=== PATIENT | female | born 1965 | race Caucasian/White ===

== ENCOUNTER 2017-08-06 09:44 | Day surgery (SDC) | payer BC ==
[~2017-08-06] VITALS: Ht 175.3 cm; Wt 108.0 kg
[2017-08-06] VITALS (16 sets, daily range): BP systolic 99–146; BP diastolic 57–74; PULSE 52–78; RESP 16–18; Ht 175.3 cm; Wt 108.0 kg
[~2017-08-06 09:44] MED LIST: ATROPINE 1 MG/10 ML SYRINGE IV PRN; CEFAZOLIN 1 GM INJ ONE; DIPHENHYDRAMINE 50 MG INJ IV PRN; EPHEDrine SULFATE 50 MG/5 ML SYG IV PRN; FENTAnyl 50 MCG/ML VIAL IV PRN; HYDR-3498 PO; HYDROmorphONE (0.2 MG/ML) 10ML SYG IV PRN; IBUP800T25 PO; LABETALOL HCL 20MG INJ IV PRN; LOSA100T7 PO; MEPERIDINE 25 MG INJ IV PRN; MIDAZOLAM 1 MG/ML 2 ML INJ IV PRN; ONDANSETRON 4 MG INJ IV PRN; ONDANSETRON 4 MG INJ ONE; OXYCODONE/ACETAMINOPHEN (5/325) TAB PO PRN; PANT40TA4 PO; hydrALAzine 20 MG INJ IV PRN; morphine (1 MG/ML) 10ML SYRINGE IV PRN
[2017-08-06] MEDS ORDERED: ASPI-664 PO (10:31)
[2017-08-06] MEDS ORDERED: LOSA1TAB20 PO (10:32)
[2017-08-06] MEDS ORDERED: BUPIVACAINE 0.5% (SDV) 30 ML INJ ONE (11:26)
[2017-08-06] MEDS ORDERED: NEOMYC/POLYMYX/BACIT 30 GM OINT ONE (11:26)
[2017-08-06] MEDS ORDERED: ROPIVACAINE 0.5 % 30 ML VIAL ONE (11:26)
[2017-08-06] MEDS ORDERED: GLYCOPYRROLATE 0.4 MG INJ ONE (11:37)
[2017-08-06] MEDS ORDERED: PROPOFOL 20 ML ONE (11:37)
[2017-08-06] MEDS ORDERED: NEOSTIGMINE 3 MG/3 ML SYRINGE ONE (11:37)
[2017-08-06] MEDS ORDERED: MIDAZOLAM 1 MG/ML 2 ML INJ ONE (11:37)
[2017-08-06] MEDS ORDERED: LIDOCAINE 2% (SDV) 5 ML INJ ONE (11:37)
[2017-08-06] MEDS ORDERED: ROCURONIUM 50 MG INJ ONE (11:37)
[2017-08-06] MEDS ORDERED: FENTAnyl 50 MCG/ML VIAL ONE ×2 (11:37→12:46)
[2017-08-06] MEDS ORDERED: morphine 2 MG INJ IV PRN (12:30)
--- NOTE | 2017-08-06 12:30 | HPN ---
Date/Time of Note Date/Time of Note DATE: 08/06/17 TIME: 12:30 Interval H&P Admission Note Pt. seen H&P reviewed: No system changes BALDEMAR ROLLE MD Aug 06, 2017 12:30
[2017-08-06] MEDS ORDERED: LIDOCAINE 2% (MDV) 20 ML INJ ONE (12:52)
[2017-08-06] MEDS ORDERED: DEXAMETHASONE 4 MG/ML 1 ML INJ ONE (12:56)
--- NOTE | 2017-08-06 13:57 | SIPON ---
Date/Time of Note Date/Time of Note DATE: 08/06/17 TIME: 13:54 Operative Report Preoperative Diagnosis Right knee lateral meniscal tear Right knee tricompartmental OA Postoperative Diagnosis Right knee lateral meniscal tear Right knee tricompartmental OA Right knee hypertrophic plica Operation/Procedure Performed Right knee arthroscopy with partial lateral meniscotomy Right knee arthroscopy with loose body removal Right knee arthroscopy chondroplasty Surgeon Gareth Rolle none Anesthesia: general, other (local) Estimated blood loss: minimal Transfusion Required none Specimen none Grafts/Implants none Complications none GARETH ROLLE MD Aug 06, 2017 13:57
--- NOTE | 2017-08-06 13:59 | OPR ---
Date/Time of Note Date/Time of Note DATE: 08/06/17 TIME: 13:57 Operative Report Procedure Date: Aug 06, 2017 Preoperative Diagnosis Right knee lateral meniscal tear Right knee tricompartmental OA Postoperative Diagnosis Right knee lateral meniscal tear Right knee tricompartmental OA Right knee hypertrophic plica Operation/Procedure Performed Right knee arthroscopy with partial lateral meniscotomy Right knee arthroscopy with loose body removal Right knee arthroscopy chondroplasty Surgeon Gareth Rolle Coron[facility] Care Unit Nurse none Anesthesia Type: general, other (local) Anesthesiologist: KAT FRYE Tourniquet Time: none Estimated Blood Loss: minimal Transfusion none Specimen none Grafts/Implants none Complications none Pt Condition Post Procedure: stable Disposition: PACU Indications INDICATIONS: Patient is a 51-year-old female with ongoing right knee pain. The patient has complained of having catching, clicking and locking symptoms over the medial aspect of the knee with no relief with physical therapy or anti- inflammatory. Patient has decided to proceed with surgery. RISK NOTE: Patient was explained the risks and benefits of the surgery in the patients [place] language, including not limited to infection, bleeding, loss of limb, loss of life, need for future surgery, risk of anesthesia, risk of injury to the blood vessels and nerves, ligaments or tendons, and risk of deep vein thrombosis. Patient understood these risks and wished to proceed with the surgery. 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 The patient was then brought back into the operative theater, placed supine on the operative table. right knee was examined under anesthesia. Range of motion was 0-120. There is no varus or valgus or anterior or posterior instability. There is crepitus noticed at the patellofemoral joint. Tourniquet was then placed on the operative extremity thigh non-sterilely. Patient was then given preoperative antibiotics and then prepped and draped in normal sterile fashion. A timeout was taken and all parties in the room agreed it was the correct patient, correct extremity and correct procedure. 10 cc of 0.25% Marcaine without epi was injected into the anterolateral and anteromedial portal sites prior to incision. Standard anterior lateral portal was created and the knee joint was entered with a blunt tipped trocar, followed by 30 arthroscope. Inflow was achieved with a pump and the pressure maintained at approximately 50 mmHg. A routine arthroscopic surgery was performed. Suprapatella pouch was unremarkable. The undersurface of the patella showed advanced grade 1 -2 chondromalacia, the trochlea showed grade III chondromalacia in the midline The medial and lateral gutters were visualized. There were no loose bodies seen. There is an inflamed hypertrophic plica noted in the anterior and superior medial aspect of the knee. The popliteus hiatus was entered and was normal. Lateral compartment was entered and grade 2/3 chondromalacia to the lateral femoral condyle and lateral tibial plateau with a tear seen to the mid body and posterior horn of the lateral meniscus Scope was then brought into the intercondylar notch and an anteromedial portal was made. Shaver was brought into the knee and small amount of fat pad and scar tissue was initially gently debrided. The anterior cruciate ligament was intact and probed. The knee was brought into a valgus position and the medial compartment was entered. The articular surface of the medial femoral condyle and medial tibial plateau revealed a grade 4 chondral defect was full-thickness to the medial femoral condyle. And the medial meniscus was examined and found to be intact with no evidence of a tearing and it was firm and stable on probing The lateral compartment was reentered and the loose chondral body measuring approximately 1 cm was removed. There lateral was a degenerative posterior horn medial meniscus tear extending to the midbody that was associated with a radial tear that visualized and debrided gently with a motorized shaver and basket forceps, the posterior horn demonstrated a degenerative tear and fibrillation pattern. The motorized shaver and basket biters were used to smooth the remaining meniscal rim, with care to maintain the peripheral meniscal rim. A probe was introduced and this was carefully probed and was found to be stable. Chondroplasty was then carried out along the weightbearing aspect of the lateral femoral condyle, lateral tibial plateau, taking care to remove only loose articular cartilage debris and preserve functional articular cartilage. Attention was then directed back to the patella femoral joint and a chondroplasty was carried out along the weightbearing aspect of the trochlea and undersurface of the patella to again remove loose debris and maintain functional active articular cartilage. The knee was then irrigated with additional 2 L of lactated Ringers solution. Excess fluid was then drained. Range of motion was then attempted showing 0- 125 degrees of motion The portal sites were closed with 4-0 Monocryl and Steri-Strips and dressed with Xeroform and triple antibiotic ointment. The knee was then injected with 20 cc of 0.5% plain ropivacaine. A dry sterile dressing was then applied followed by a bulky soft bandage in a thigh-high Hoang stocking. At the completion of the surgery patient had palpable pulses, soft arms and brisk cap refill. The patient tolerated the procedure well and was taken to the PACU without any complications. All sponge and needle counts were correct. Patient will begin pain medicine and 48 hours of antibiotics as well as aspirin 81 mg for the duration of 4 weeks postoperatively GARETH ROLLE MD Aug 06, 2017 13:59
== END 2017-08-06 15:55 | disposition home or self-care (01) ==
LOC: SDS 09:44
PROVIDERS: ATTEND Orthopaedic Surgery
DX: S83.281A Other tear of lateral meniscus, current injury, right knee, initial encounter (principal); M25.561 Pain in right knee; I10 Essential (primary) hypertension; K21.9 Gastro-esophageal reflux disease without esophagitis; G47.30 Sleep apnea, unspecified; X58.XXXA Exposure to other specified factors, initial encounter; Y92.89 Other specified places as the place of occurrence of the external cause; Y93.89 Activity, other specified; Y99.8 Other external cause status
CPT/HCPCS: 29881; J0690; J1100; J2250; J2405; J2710; J2795; J3010; Z7512; Z7610

== ENCOUNTER 2017-11-18 09:42 | Day surgery (SDC) | END 2017-11-18 13:59 | disposition home or self-care (01) ==